=== PATIENT | female | born 1975 | race Caucasian/White ===

== ENCOUNTER 2019-08-18 08:52 | Emergency (ER) | payer MEDICAID ==
[~2019-08-18] VITALS: Ht 154.9 cm; Wt 88.9 kg
[2019-08-18 09:01] VITALS: Ht 154.9 cm; Wt 88.9 kg
[2019-08-18 10:06] VITALS: BP 128/61
== END 2019-08-18 10:06 | disposition home or self-care (01) ==
LOC: ED 08:52
DX: S62.623A Displaced fracture of middle phalanx of left middle finger, initial encounter for closed fracture (principal); Z98.890 Other specified postprocedural states; X58.XXXA Exposure to other specified factors, initial encounter; Y93.89 Activity, other specified; Y92.89 Other specified places as the place of occurrence of the external cause; Y99.8 Other external cause status
CPT/HCPCS: A4570